=== PATIENT | male | born 1995 | race Caucasian/White ===

== ENCOUNTER 2021-12-27 01:51 | Emergency (ER) | payer OTHER ==
[2021-12-27 01:57] VITALS: BP 136/78
--- NOTE | 2021-12-27 02:07 | ED Physician Documentation ---
PD HPI LOWER EXT INJURY - Stated complaint Stated Complaint: PINKY PAIN - Chief complaint Chief Complaint: Ext Problem - Additional information Additional information: Patient is 26-year-old male presenting to the emergency department with left fifth toe injury. Snagged his toe while moving furniture earlier this evening. Denies previous orthopedic injuries to the same toe. Review of Systems Ten Systems: 10 systems reviewed and negative Constitutional: denies: Fever Cardiac: denies: Chest pain / pressure GI: denies: Abdominal Pain PD PAST MEDICAL HISTORY - Present Medications Home Medications: Ambulatory Orders Medication Instructions Recorded Confirmed HYDROcod/ACETAM 5/325 [[place] 5/325] 1 - 2 ea PO Q6H PRN #14 tablet 12/27/21 - Allergies Allergies/Adverse Reactions: Allergies Allergy/AdvReac Type Severity Reaction Status Date / Time No Known Drug Allergies Allergy Verified 12/27/21 01:57 PD ED PE NORMAL - General General: Alert and oriented X 3 - HEENT HEENT: Atraumatic - Respiratory Respiratory: No respiratory distress PD ED PE EXPANDED - Extremities Extremities: Deformity, Tenderness, Limited ROM, Swelling, Other (Left toe) Results - Vitals Vitals: Vital Signs - 24 hr 12/27/21 01:54 Temperature 36.4 C L Heart Rate 81 Respiratory 18 Rate Blood Pressure 136/78 H O2 Saturation 98 Oxygen O2 Source Room air Procedures - Reduction Body part reduced: Toe Fracture or dislocation: Dislocation Anesthesia: Digital block Reduction aftercare: Crutches, Patient tolerated well, Unable to reduce, Other (Toe deborah taped, hard soled shoe and crutches provided.) PD MEDICAL DECISION MAKING - ED course Complexity details: d/w patient ED course: Patient is 26-year-old male presenting to the emergency department with dislocation of his left fifth toe. Neurovascularly intact. Digital block and reduction attempted in the emergency department however despite multiple attempts with exaggeration and attempted reduction I was unsuccessful in reducin g his dislocated toe. Toe deborah taped. We will provide medication for pain control, crutches, hard soled shoe. Will refer to orthopedics for follow-up. Work note provided. Otherwise clear return precautions and follow-up instructions given prior to discharge. Final clinical impression, toe dislocation. Departure - Departure Disposition: 01 Home, Self Care Clinical Impression: Dislocation of toe of left foot Follow-Up: Richard Helms MD [Provider Admit Priv/Credential] - Prescriptions: HYDROcod/ACETAM 5/325 [[facility] 5/325] 1 - 2 ea PO Q6H PRN #14 tablet PRN Reason: Pain Comments: Thank you for allowing us to care for you last night at [facility]. The x-rays taken showed a dislocation of your left fifth toe. I am very sorry that I was unable to appropriately reduce it here in the emergency department this evening. I would like you to follow-up with an high school library media specialist as soon as possible however. I have included contact information for Dr. Richard Helms, Orthopedic surgery. Please contact their office first thing in the morning in order to arrange a follow-up appointment. I have sent some medication for pain control [facility]. I do recommend continue to deborah tape your fourth and fifth toes as was demonstrated here in the emergency department as well as continue to use the hard soled shoe and crutches provided here in the emergency department as needed until cleared by orthopedics. If it anytime you have any new or worsening symptoms please not hesitate to return to the emergency department. Forms: Activity restrictions Discharge Date/Time: 12/27/21 03:37
[2021-12-27] MEDS ORDERED: HYDROcod/ACET 5/325 Prepack 4 PO STA (03:26)
--- NOTE | 2021-12-27 07:30 | XRAY Report ---
PROCEDURE: Toe(s) LT INDICATIONS: 5th toe injury TECHNIQUE: 3 views of the left fifth toe(s) acquired. COMPARISON: None FINDINGS: Bones: Fifth distal phalange is displaced laterally. No fractures . No suspicious bony lesions. Soft tissues: No suspicious soft tissue densities. IMPRESSION: Fifth DIP joint dislocation. Reviewed by: Reina Martines MD, PhD on 12/27/2021 7:28 AM PDT Approved by: Reina Martines MD, PhD on 12/27/2021 7:28 AM PDT Station ID: [id number]
== END 2021-12-27 03:37 | disposition home or self-care (01) ==
LOC: ED 01:51
DX: S93.105A Unspecified dislocation of left toe(s), initial encounter (principal); X58.XXXA Exposure to other specified factors, initial encounter; Y93.89 Activity, other specified
CPT/HCPCS: 73660; 99283

== ENCOUNTER 2021-12-31 08:00 | Outpatient (CLI) | payer OTHER ==
--- NOTE | 2021-12-31 17:05 | XRAY Report ---
PROCEDURE: Foot 3 View LT INDICATIONS: 5TH TOE DISLOCATION TECHNIQUE: 3 views of the foot were acquired. COMPARISON: 2 views of the left fifth digit dated 12/27/2021 FINDINGS: Bones: There is persistent dislocation of the left interphalangeal joint. No acute fracture. Soft tissues: No tibiotalar joint effusion. Achilles tendon appears normal. IMPRESSION: Persistent dislocation of the left fifth interphalangeal joint. Reviewed by: Kristen Metz MD on 12/31/2021 5:04 PM PDT Approved by: Kristen Metz MD on 12/31/2021 5:04 PM PDT Station ID: [id number]
== END 2021-12-31 23:59 | disposition home or self-care (01) ==
LOC: DI.WOS 08:00
PROVIDERS: ATTEND Orthopaedic Surgery
DX: S93.115A Dislocation of interphalangeal joint of left lesser toe(s), initial encounter (principal)

== ENCOUNTER 2022-01-02 11:56 | Day surgery (SDC) | payer OTHER ==
[~2022-01-02 11:56] MED LIST: BUPIVACAINE 0.5% PF 30 ML VIAL ONE; CEFAZOLIN SODIUM IN 0.9 % NACL 2 GM/50 ML BAG IV ONE
[2022-01-02] MEDS ORDERED: LACTATED RINGERS 1,000 ML IV ONE (12:13)
[2022-01-02] MEDS ORDERED: fentaNYL 100 MCG/2 ML VIAL ONE ×2 (12:34→14:53)
[2022-01-02] MEDS ORDERED: KETAMINE 500 MG/10 ML VIAL ONE (12:34)
[2022-01-02] MEDS ORDERED: MIDAZOLAM 2 MG/2 ML VIAL ONE (12:34)
[2022-01-02] MEDS ORDERED: SODIUM CHLORIDE 0.9% 10 ML VIAL IVP ONE (12:35)
[2022-01-02] MEDS ORDERED: PROPOFOL 500 MG/50 ML 500 MG/50 ML VIAL ONE (12:36)
--- NOTE | 2022-01-02 12:41 | ANESTHESIA ---
Pre-Anesthesia VS, & Labs - Diagnosis Left 5th toe interphalengeal join dislocation - Procedure Closed reduction, possible open, left 5th toe Vital Signs: Temp Pulse Resp BP Pulse Ox 36.5 C 66 16 121/76 98 01/02/22 12:14 01/02/22 12:14 01/02/22 12:14 01/02/22 12:14 01/02/22 12:14 Height: 5 ft 2.5 in Weight (kg): 60.4 kg Body Mass Index: 23.9 BMI Classification: Healthy weight - NPO >8 hours Home Medications and Allergies Allergies/Adverse Reactions: Allergies Allergy/AdvReac Type Severity Reaction Status Date / Time No Known Drug Allergies Allergy Verified 01/02/22 12:27 Anes History & Medical History - Anesthetic History Anesthesia Complications: reports: Post-Operative Nausea/Vomiting Family history of Anesthesia Complications: Denies Family history of Malignant Hyperthermia: Denies - Medical History Cardiovascular: reports: None Pulmonary: reports: None Gastrointestinal: reports: None Urinary: reports: None Musculoskeletal: reports: Other Endocrine/Autoimmune: reports: None Skin: reports: None Smoking Status: Never smoker Psychosocial: reports: No issues indicated History of Cancer?: No Exam General: Alert, Oriented x3 Dental: WNL Mouth Opening: Greater than 4 Fingerbreadths Neck Mobility: Normal Mallampati classification: II Thyromental Distance: greater than 6 cm Respiratory: Lungs clear Cardiovascular: Regular rate, Normal S1, Normal S2, No murmurs Mental/Cognitive Status: Alert/Oriented X3, Normal for patient Cognitive Status: Within normal limits Plan Anesthesia Type: IV Regional, Other (anckle block) Consent for Procedure(s) Verified and Reviewed: Yes Code Status: Attempt Resuscitation ASA classification: 1-Healthy patient Is this case an emergency?: No
[2022-01-02] MEDS ORDERED: LIDOCAINE-MPF 2% 5 ML VIAL ONE (12:50)
[2022-01-02] MEDS ORDERED: ROPIVACAINE 0.5% PF 20 ML AMPULE ONE (12:50)
[2022-01-02] MEDS ORDERED: ACETAMINOPHEN 1,000 MG/100 ML 100 ML IV ONE (13:41)
[2022-01-02] MEDS ORDERED: BUPIVACAINE 0.5% PF 30 ML VIAL INFIL ONE ×2 (13:42)
[2022-01-02] MEDS ORDERED: ONDANSETRON 4 MG/2 ML VIAL ONE (13:43)
[2022-01-02] MEDS ORDERED: ONDANSETRON 4 MG/2 ML VIAL IVP PRN (14:20)
[2022-01-02] MEDS ORDERED: METOCLOPRAMIDE 10 MG/2 ML VIAL IVP PRN (14:20)
[2022-01-02] MEDS ORDERED: ePHEDrine 50 MG/ML VIAL IVP PRN (14:20)
[2022-01-02] MEDS ORDERED: HYDROmorphone 0.5 MG/0.5 ML SYRINGE IVP PRN (14:20)
[2022-01-02] MEDS ORDERED: NALOXONE 0.4 MG/ML VIAL IVP PRN (14:20)
[2022-01-02] MEDS ORDERED: ATROPINE ABBOJECT 1 MG/10 ML SYRINGE IVP PRN (14:20)
[2022-01-02] MEDS ORDERED: fentaNYL 100 MCG/2 ML VIAL IVP PRN (14:20)
[2022-01-02] MEDS ORDERED: MORPHINE 2 MG/ML CARPUJECT IVP PRN (14:20)
[2022-01-02] MEDS ORDERED: LACTATED RINGERS 900 ML IV ONE (14:23)
[2022-01-02] MEDS ORDERED: PROPOFOL 200 MG/20 ML VIAL IVP ONE (14:27)
[2022-01-02] MEDS ORDERED: oxyCODONE 5 MG TABLET PO PRN (14:29)
--- NOTE | 2022-01-02 14:31 | OPERATIVE REPORT ---
Operative Report - General Procedure Date: 01/02/22 Planned Procedure: Closed reduction left fifth toe proximal interphalangeal joint, possible open reduction internal fixation left fifth toe proximal inner phalangeal joint Pre-Op Diagnosis: Dislocation proximal interphalangeal joint left fifth toe Procedure Performed: Open reduction internal fixation proximal interphalangeal joint left fifth toe dislocation Post Op Diagnosis: Same as preoperative diagnosis - Procedure Note Primary Surgeon: Richard Helms MD Secondary Surgeon: Suellen ROMANO Anesthesia Provider: Blanquita Merritt CRNA Anesthesia Technique: Moderate sedation, Regional block Estimated Blood Loss (mL): 3 Indications: This is a healthy 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 He was first seen at my office on this past 12/31/2021 and obtained authorization from [facility] the following day. He had deformity of the left fifth toe, minimal pain. He has had no previous problems with the left fifth toe. He had been seen in the emergency room where attempted closed reduction was performed but not successful. Findings: There is a dorsal fibular dislocation of the proximal inner phalangeal joint left fifth toe. There are no fractures present about the joint. Complications: None - Other Other Information/Narrative: The patient was given a regional foot and ankle block by anesthesia department. The patient was brought to the operating room and placed in a supine position. The left foot and left lower extremity was prepped and draped in a sterile manner in the usual fashion with the knee placed over a padded bolster. A t imeout procedure was performed by the entire operating room team. The C-arm image intensifier was available and was covered with a sterile drape. Attempt at closed reduction was tried. I was unable to reduce the joint and felt like there was soft tissue entrapment blocking reduction to the left fifth toe proximal interphalangeal joint. Therefore, open reduction was performed dorsal longitudinal incision over the proximal interphalangeal joint. The extensor tendon was divided transversely. The joint cannot be initially seen until the middle phalanx was lifted dorsally with Hohmann retractors. This reduced the joint and the deformity that was present. A K wire was inserted from the tip of the toe across the joint to stabilize the proximal interphalangeal joint. The wound was irrigated. The extensor tendon was repaired with 3 0A physician assistant food service director was medically necessary to help with prepping and draping, positioning, protection of vital structures, assistance during the procedure including wound closure, dressing and/or splinting.A physician assistant food service director was medically necessary to help with prepping and draping, positioning, protection of vital structures, assistance during the procedure including wound closure, dressing and/or splinting. strata fix. The skin was closed with 4-0 Monocryl subcuticular suture. The K wire had been cut external to the tip of the toe and covered with a sterile plastic ball. Dermabond was applied to the incision, then a sterile bulky foot dressing.A physician assistant food service director was medically necessary to help with prepping and draping, positionin g, protection of vital structures, assistance during the procedure including wound closure, dressing and/or splinting.
[2022-01-02] MEDS ORDERED: ONDANSETRON 4 MG/2 ML VIAL IVP SCH (15:00)
[2022-01-02] MEDS ORDERED: LACTATED RINGERS 1,000 ML IV SCH (15:00)
[2022-01-02 15:22] VITALS: BP 131/84
[2022-01-02] MEDS ORDERED: oxyCODONE 5 MG TABLET ONE (15:36)
--- NOTE | 2022-01-02 16:36 | ANESTHESIA POST OP EVALUATION ---
Anesthesia Post Eval - Post Anesthesia Eval Vitals: Last Vital Signs Temp 36.0 C L 01/02/22 15:15 Pulse 63 01/02/22 15:15 Resp 16 01/02/22 15:15 BP 131/84 H 01/02/22 15:15 Pulse Ox 99 01/02/22 15:15 CV Function Including HR & BP: Stable Pain Control: Satisfactory Nausea & Vomiting: Negative Mental Status: Baseline Respiratory Status: Airway Patent Hydration Status: Satisfactory Anesthesia Complications: None
--- NOTE | 2022-01-02 20:53 | XRAY Report ---
PROCEDURE: OR C-Arm Procedure INDICATIONS: CLOSED REDUCTION, POSSIBLE ORIF LEFT 5TH TOE TECHNIQUE: Single intraoperative view COMPARISON: None. FINDINGS: Intraoperative view demonstrates pin fixation of the fifth DIP joint dislocation. There is good anato elizabeth alignment. IMPRESSION: Pin fixation with good anatomic alignment of fifth DIP dislocation. Reviewed by: Kristen Crisostomo MD on 01/02/2022 8:52 PM PDT Approved by: Kristen Crisostomo MD on 01/02/2022 8:52 PM PDT Station ID: [id number]
== END 2022-01-02 11:57 | disposition home or self-care (01) ==
LOC: SDS 11:56
PROVIDERS: ATTEND Orthopaedic Surgery
DX: S93.115A Dislocation of interphalangeal joint of left lesser toe(s), initial encounter (principal); W22.03XA Walked into furniture, initial encounter; Y92.9 Unspecified place or not applicable
CPT/HCPCS: 28675; A9270; C1713; J0131; J0690; J7120

== ENCOUNTER 2023-12-17 20:27 | Emergency (ER) | payer OTHER ==
[2023-12-17 20:45] VITALS: BP 134/67; O2SAT 99
[2023-12-17 20:59] LABS: BILIRUBIN,URINE NEGATIVE (NEGATIVE); GLUCOSE, URINE (UA) NEGATIVE (NEGATIVE); KETONES,URINE (UA) TRACE mg/dL (NEGATIVE); LEUKOCYTE ESTERASE, URINE NEGATIVE (NEGATIVE); NITRITE,URINE NEGATIVE (NEGATIVE); OCCULT BLOOD,URINE NEGATIVE (NEGATIVE); PH,URINE 6.5 PH (5.0-7.5); PROTEIN,URINE NEGATIVE (NEGATIVE); UROBILINOGEN,URINE 0.2 (NORMAL) E.U./dL (NORMAL)
[2023-12-17 21:04] LABS: CLARITY,URINE CLEAR (CLEAR)
[2023-12-17] MEDS: cefTRIAXone 250 MG VIAL IM STA (22:03)
[2023-12-17] MEDS: LIDOCAINE 1% 2 ML VIAL MC ONE (22:03)
--- NOTE | 2023-12-17 22:11 | ED Physician Documentation ---
History of Present Illness - Stated complaint Stated Complaint: - Chief complaint Chief Complaint: UTI - History obtained from History obtained from: Patient - Additonal information Additional information: 28yM previously healthy p/w penile discharge and dysuria X 2 days. denies fever, abdominal pain, back pain, increased frequency, testicular pain or lesions. one partner. PD PAST MEDICAL HISTORY - Past Medical History Past Medical History: Yes Cardiovascular: None Respiratory: None Endocrine/Autoimmune: None GI: None : None HEENT: None Psych: None Musculoskeletal: Other Derm: None - Past Surgical History Past Surgical History: No Ortho: Other - Present Medications Home Medications: Ambulatory Orders Medication Instructions Recorded Confirmed Doxycycline Hyclate 100 mg PO BID 14 Days #28 tab 12/17/23 - Allergies Allergies/Adverse Reactions: Allergies Allergy/AdvReac Type Severity Reaction Status Date / Time No Known Drug Allergies Allergy Verified 12/17/23 20:35 - Social History Does the pt smoke?: No Smoking Status: Never smoker Does the pt drink ETOH?: Yes Does the pt have substance abuse?: No - Immunizations Immunizations are current?: Yes - POLST Patient has POLST: No PD ED PE NORMAL - Vitals Vital signs reviewed: Yes - General General: Alert and oriented X 3, No acute distress, Well developed/nourished - HEENT HEENT: Atraumatic, PERRL, EOMI - Male Male : Planner present (RN), Other (uncircumcised penis. nontender with no lesions or visible discharge. testicles normal lie with normal BL cremaster. No palpable hernia) - Rectal Rectal: Pt declined - Derm Derm: Normal color, Warm and dry Results - Vitals Vitals: Vital Signs - 24 hr 12/17/23 20:35 Temperature 36.9 C Heart Rate 99 Respiratory 16 Rate Blood Pressure 134/67 H O2 Saturation 99 Oxygen O2 Source Room air - Labs Labs: Laboratory Tests 12/17/23 20:50 Urine Color YELLOW Urine Clarity CLEAR Urine pH 6.5 Ur Specific [place] 1.025 Urine Protein NEGATIVE Urine Glucose (UA) NEGATIVE Urine Ketones TRACE Urine Occult Blood NEGATIVE Urine Nitrite NEGATIVE Urine Bilirubin NEGATIVE Urine Urobilinogen 0.2 (NORMAL) Ur Leukocyte Esterase NEGATIVE Ur Microscopic Review NOT INDICATED Urine Culture Comments NOT INDICATED PD Medical Decision Making - ED course ED course: 28-year-old man presents with dysuria and whitish discharge for the past 2 days, with normal urinalysis. Treated presumptively for STI and provided guidance on partner treatment. Return precautions given. Plan to follow-up with his primary care provider. Departure - Departure Disposition: 01 Home, Self Care Clinical Impression: STI (sexually transmitted infection) Condition: Stable Instructions: STDs Prescriptions: Doxycycline Hyclate 100 mg PO BID 14 Days #28 tab Comments: You were seen in the emergency department for presumed sexually transmitted infection. Make sure your partner gets tested and avoid sexual activity until they have received their results. Prescription sent to [facility]. Please follow-up with your primary care provider and return to the emergency department if you have any new or worsening symptoms or other concerns.
[2023-12-17] MEDS: DOXYCYCLINE 100 MG TABLET PO STA (22:13)
== END 2023-12-17 22:15 | disposition home or self-care (01) ==
LOC: ED 20:27
DX: A64 Unspecified sexually transmitted disease (principal)
CPT/HCPCS: 81003; 96372; 99283; A9270; 81001; 87086